=== PATIENT | male | born 1995 | race Caucasian/White ===

== ENCOUNTER 2017-02-14 14:40 | Day surgery (SDC) | payer OTHER ==
[~2017-02-14] VITALS: Ht 182.9 cm; Wt 75.4 kg
[2017-02-14] MEDS ORDERED: LEXAPRO 10MG10 MG PO (15:03)
[2017-02-14 15:25] VITALS: BP 112/72; PULSE 61; TEMP 98.3
[2017-02-14 16:35] VITALS: BP 136/91; PULSE 72; TEMP 97.5
[2017-02-14 16:50] VITALS: BP 129/96; PULSE 84
== END 2017-02-14 17:00 | disposition home or self-care (01) ==
LOC: SDCO 14:40
DX: R11.2 Nausea with vomiting, unspecified (principal); K25.3 Acute gastric ulcer without hemorrhage or perforation; K22.6 Gastro-esophageal laceration-hemorrhage syndrome; K92.0 Hematemesis
CPT/HCPCS: J2250; J3010; J7030